=== PATIENT | female | born 1990 | race Caucasian/White ===

== ENCOUNTER 2023-01-02 08:59 | Day surgery (SDC) | payer MEDICAID ==
[~2023-01-02 08:59] MED LIST: Lactated Ringers 1,000 ML IV SCH; Sodium Chloride 0.9% 10 ML Syringe FLUSH PRN; Sodium Chloride 0.9% 10 ML Syringe FLUSH SCH
[2023-01-02 09:40] LABS: PROTHROMBIN TIME 10.7 SECONDS (9.7-12.0)
[2023-01-02 09:41] LABS: PTT,PARTIAL THROMBOPLSTIN TIME 27.7 SECONDS (21.7-31.4)
[2023-01-02] MEDS ORDERED: Bupivacaine 0.25% 10 ML SDV ONE (09:53)
[2023-01-02] MEDS ORDERED: EPINEPHrine 1 MG/ML SDV ONE ×2 (10:15→12:21)
[2023-01-02] MEDS ORDERED: Midazolam 1 MG/ML 2 ML SDV ONE (10:17)
[2023-01-02] MEDS ORDERED: fentaNYL 100 MCG/2 ML SDV ONE ×4 (10:17→12:47)
[2023-01-02] MEDS ORDERED: Lidocaine 2% 5 ML SDV ONE (10:20)
[2023-01-02] MEDS ORDERED: Propofol 200 MG/20 ML SDV ONE (10:21)
[2023-01-02] MEDS ORDERED: Lidocaine 1% 5 ML VIAL ONE (10:21)
[2023-01-02] MEDS ORDERED: Dexamethasone 4 MG/ML 5 ML MDV ONE (10:22)
[2023-01-02] MEDS ORDERED: Metoclopramide 10 MG/2 ML SDV ONE (10:23)
[2023-01-02] MEDS ORDERED: ceFAZolin 2 GM Vial ONE (10:33)
[2023-01-02] MEDS ORDERED: Dexmedetomidine 200 MCG/2 ML SDV ONE (12:04)
[2023-01-02] MEDS ORDERED: Ropivacaine 0.5% 5 MG/ML 30 ML SDV ONE (12:04)
[2023-01-02] MEDS ORDERED: HYDROmorphone 0.5 MG/0.5 ML Syringe IVPUSH PRN (12:40)
[2023-01-02] MEDS ORDERED: Ondansetron 4 MG/2 ML SDV IVPUSH PRN (12:40)
[2023-01-02] MEDS: fentaNYL 100 MCG/2 ML SDV IVPUSH PRN ×2 (12:48→13:22)
[2023-01-02] MEDS ORDERED: Acetaminophen/HYDROcodone 325-5 MG Tab PO PRN (13:52)
== END 2023-01-02 16:15 | disposition home or self-care (01) ==
LOC: JD.SDS 08:59
PROVIDERS: ATTEND Orthopaedic Surgery
DX: S83.511A Sprain of anterior cruciate ligament of right knee, initial encounter (principal); B19.20 Unspecified viral hepatitis C without hepatic coma; F17.210 Nicotine dependence, cigarettes, uncomplicated; Z79.82 Long term (current) use of aspirin; Z79.899 Other long term (current) drug therapy
CPT/HCPCS: 29888; 36415; 64447; 76000; 81025; 85610; 85730; A9270; C1713; J0171; J0690; J1100; J1170; J2250; J2704; J2765; J2795; J3010; J3490; J7120; 01400